=== PATIENT | female | born 1975 | race Caucasian/White ===

== ENCOUNTER 2017-03-20 06:05 | Emergency (ER) | payer OTHER ==
[2017-03-20 06:20] VITALS: O2SAT 100
--- NOTE | 2017-03-20 07:31 | C.PDOC ---
History Of Present Illness 41 yr old female presents to the ER with complaints of right sided neck pain for the past 2 days. Patient states she woke up with the pain, has tired Advil for the pain. Patient also reports of stiffness when she turns her head. Patient denies fever, vision changes, nausea, vomiting, back pain, weakness or numbness. Time Seen by Provider: 03/20/17 07:14 Chief Complaint (Nursing): Medical Clearance History Per: Patient History/Exam Limitations: no limitations Onset/Duration Of Symptoms: Days (2) Past Medical History Reviewed: Historical Data, Nursing Documentation, Vital Signs Vital Signs: Last Vital Signs Temp 97.8 F 03/20/17 06:17 Pulse 75 03/20/17 06:17 Resp 20 03/20/17 06:17 BP 117/80 03/20/17 06:17 Pulse Ox 100 03/20/17 07:33 Family History: States: No Known Family Hx - Social History Hx Alcohol Use: No Hx Substance Use: No - Immunization History Hx Tetanus Toxoid Vaccination: No Hx Influenza Vaccination: No Hx Pneumococcal Vaccination: No Review Of Systems Except As Marked, All Systems Reviewed And Found Negative. Constitutional: Negative for: Fever Eyes: Negative for: Vision Change Gastrointestinal: Negative for: Nausea, Vomiting Musculoskeletal: Positive for: Neck Pain (Right sided neck pain). Negative for : Back Pain Neurological: Negative for: Weakness, Numbness Physical Exam - Physical Exam Appears: Non-toxic, No Acute Distress Skin: Warm, Dry, No Rash Head: Atraumatic, Normacephalic Eye(s): bilateral: Normal Inspection, PERRL, EOMI Oral Mucosa: Moist Neck: Other ((+) Right sided tenderness. Decrease ROM to the right.) Extremity: Normal ROM, No Swelling Neurological/Psych: Oriented x3, Normal Speech, Normal Motor ED Course And Treatment O2 Sat by Pulse Oximetry: 100 (RA) Pulse Ox Interpretation: Normal Medical Decision Making Medical Decision Making: PLAN: * Motrin PO * Tylenol PO * Valium PO Patient feeling much better will d/c with meds Disposition Counseled Patient/Family Regarding: Diagnosis, Need For Followup, Rx Given - Disposition Referrals: [facility] [Outside] Disposition: HOME/ ROUTINE Disposition Time: 08:31 Condition: STABLE Additional Instructions: Siga con layton mdico o con nuestra clnica. [place] los medicamentos ashley se indica. Use compresas calientes en el felicia. Vuelva al Departamento de Emergencias con cualquier otra preocupacin. Prescriptions: diaZEpam [Valium] 5 mg PO TID #12 tab Ibuprofen [Motrin] 600 mg PO TID #15 tab Instructions: Musculoskeletal Pain (ED) Forms: Work Excuse, Gen Discharge Inst Italian, [employer] [facility] (Italian) - POA Present On Arrival: None - Clinical Impression Clinical Impression: Neck pain, musculoskeletal - Scribe Statement The provider has reviewed the documentation as recorded by the Scribe Amber Pat Provider Attestation: All medical record entries made by the Scribe were at my direction and personally dictated by me. I have reviewed the chart and agree that the record accurately reflects my personal performance of the history, physical exam, medical decision making, and the department course for this patient. I have also personally directed, reviewed, and agree with the discharge instructions and disposition.
[2017-03-20 09:00] VITALS: BP 117/79; PULSE 70; RESP 16; TEMP 98
== END 2017-03-20 09:00 | disposition home or self-care (01) ==
LOC: C.ER 06:05
DX: M54.2 Cervicalgia (principal)